=== PATIENT | female | born 1990 | race Caucasian/White ===

== ENCOUNTER 2018-06-07 05:46 | Emergency (ER) | payer OTHER, SELFPAY ==
[2018-06-07 05:56] VITALS: BP 137/74; PULSE 89; RESP 16; TEMP 36.8; O2SAT 95
--- NOTE | 2018-06-07 06:05 | ED.GENADUL ---
Disposition Clinical Impression: Right knee sprain Disposition: HOME Condition: Stable Instructions: Knee Sprain (ED) Additional Instructions: follow up with your primary care provider in one week if pain continued you can take 1000mg tylenol and 600mg ibuprofen every 6 hours for pain as needed Forms: Work Release Medical Decision Making - Radiology Data Radiology results: image reviewed - Medical Decision Making patient here with what is likely a knee sprain vs strain, could also be meniscus injury vs ligamentous injury. Will obtain xrays to eval for fx. Has normal vascular exam and mechanism not consistent with popliteal injury I do not see any acute fractures on xray. I advised she f/u with pcp if pain continues in one week and she was offered crutches but she declined this - Differential Diagnosis strain, sprain, fx, acs injury History of Present Illness - General Chief complaint: Orthopedic Stated complaint: UNKNOWN Time Seen by Provider: 06/07/18 05:51 Source: patient Mode of arrival: ambulatory Limitations: no limitations - History of Present Illness Initial comments: 28 yo female comes in with right knee pain since yesterday. 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 She was being taken down and states her right knee got hyperextended. Denies hitting her head or loc. She denies headache, neck pain, sob, chest pain. She has pain in the anterior knee and pain with ambulation. Is able to fully extend the knee and flexion limited due to pain, has intact distal sensation and 2+ dp/pt pulses. She has no significant swelling of the knee and no significant laxity noted MD Complaint: right knee pain Onset/Timin -: days(s) Location: lower extremity Radiation: non-radiation Improves with: rest Worsens with: movement Associated Symptoms: denies other symptoms Treatments Prior to Arrival: other (tylenol) - Related Data FLUoxetine [PROzac] 80 mg PO DAILY 06/07/18 Levothyroxine [Levothroid] 25 mcg PO DAILY@0730 06/07/18 Allergies Allergy/AdvReac Type Severity Reaction Status Date / Time Penicillins Allergy Severe Unverified 06/07/18 05:56 Review of Systems Constitutional: denies: fever Respiratory: denies: shortness of breath Neurological: denies: headache Comment: All other systems reviewed and negative Past Medical History - Past Medical History Medical history: no medical history - Social History Alcohol use: none Drug use: none General Exam - General Limitations: no limitations General appearance: alert, in no apparent distress - Head Head exam: Present: atraumatic - Eye Eye exam: Present: normal apperance - ENT ENT exam: Present: mucous membranes moist - Neck Neck exam: Present: normal inspection. Absent: tenderness - Respiratory Respiratory exam: Absent: respiratory distress - Cardiovascular Cardiovascular Exam: Present: regular rate - Extremities Exam Extremities exam: Present: normal capillary refill, other (see hpi). Absent: calf tenderness - Neurological Exam Neurological exam: Present: alert, oriented X3. Absent: motor sensory deficit - Skin Skin exam: Present: warm Course Vital Signs - 24 hr 06/07/ 05:56 Temperature 98.2 F Pulse 89 Respiratory 16 Rate Blood Pressure 137/74 Pulse Oximetry 95
[2018-06-07] MEDS: Ibuprofen 600 MG TAB PO (06:07)
--- NOTE | 2018-06-07 06:25 | DI.REPORT_ITS ---
SYMPTOM/DIAGNOSIS: PAIN, S/P FALL RIGHT KNEE: Three views. No acute fracture or dislocation is identified. IMPRESSION: No acute abnormality.
--- NOTE | 2018-06-07 06:54 | DI.VRAD_ITS ---
EXAM: XR Right Knee, 3 views EXAM DATE/TIME: 06/07/2018 6:06 AM. CLINICAL HISTORY: 28 years old, female; Pain; Knee; Right; Patient HX: Hyper extended knee, posterior muscle pain TECHNIQUE: Three views of the right knee. COMPARISON: No relevant prior studies available. FINDINGS: Bones/joints: Unremarkable. No acute fracture. No dislocation. Soft tissues: Nonspecific diffuse soft tissue prominence may reflect baseline IMPRESSION: No acute findings. Dictated and Authenticated by: Siddharth Leyva MD. Ordering:DEVENDRA CLARKE MD
== END 2018-06-07 06:47 | disposition home or self-care (01) ==
PROVIDERS: Emergency Provider Emergency Medicine; Referring Provider Emergency Medicine
DX: S83.91XA Sprain of unspecified site of right knee, initial encounter (principal); X50.9XXA Other and unspecified overexertion or strenuous movements or postures, initial encounter; Y99.0 Civilian activity done for income or pay; Y92.149 Unspecified place in prison as the place of occurrence of the external cause
CPT/HCPCS: 73562; 99283; 99282; L1810